=== PATIENT | male | born 1945 | race Hispanic/Latino ===

== ENCOUNTER 2016-07-07 06:16 | Day surgery (SDC) | payer MEDICARE ==
[~2016-07-07 06:16] MED LIST: NEOFRIN OS SCH; TETRACAINE 0.5% OS SCH
[2016-07-07] MEDS ORDERED: VERSED ONE (07:13)
[2016-07-07] MEDS: VIGAMOX OS SCH ×3 (07:20→07:30)
[2016-07-07] MEDS: AK-Dilate OS SCH ×3 (07:20→07:30)
[2016-07-07] MEDS: MYDRIACYL 1% OS SCH ×3 (07:20→07:30)
--- NOTE | 2016-07-07 07:32 | Anesthesia Consultation ---
Anesthesia Consult and Med Hx Date of service: 07/07/16 - Airway Anesthetic Teeth Evaluation: Good ROM Head & Neck: Adequate Mental/Hyoid Distance: Adequate Mallampati Class: Class I Intubation Access Assessment: Good - Pulmonary Exam CTA: Yes - Cardiac Exam Cardiac Exam: RRR - Pre-Operative Health Status ASA Pre-Surgery Classification: ASA3 Proposed Anesthetic Plan: MAC - Pulmonary Hx Smoking: Yes (quit about 20 years ago) Hx Asthma: No Hx Respiratory Symptoms: Yes (currently having clear nasal drainage d/t cold) COPD: No Hx Sleep Apnea: Yes (cpap) - Cardiovascular System Hx Hypertension: Yes Hx Heart Murmur: No - Central Nervous System Hx Neuromuscular Disorder: Yes (occasional numbness in fingers; restless leg syndrome) Hx Psychiatric Problems: Yes - Gastrointestinal Hx Gastroesophageal Reflux Disease: Yes (esophageal stricture) - Endocrine Hx Renal Disease: Yes (kidney stones; BPH) Hx Insulin Dependent Diabetes: Yes Hx Thyroid Disease: No - Hematic Hx Anemia: No - Other Systems Hx Alcohol Use: No Hx Substance Use: No Hx Cancer: No
--- NOTE | 2016-07-07 07:33 | Anesthesia Day of Surgery ---
Anesthesia Day of Surgery - Day of Surgery Patient Examined: Yes Patient H&P Reviewed: Yes Patient is NPO: Yes Beta Blockers: No
[2016-07-07] MEDS ORDERED: PRED FORTE 1% OS SCH (08:00)
[2016-07-07] MEDS ORDERED: PEPCID IV NR (08:00)
[2016-07-07] MEDS ORDERED: ADRENALIN IV ONE (08:35)
--- NOTE | 2016-07-07 08:49 | Operative Report ---
Operative Report Operative Report: PATIENT'S NAME: DATE OF : DATE OF SURGERY: 07/07/2016 PREOPERATIVE DIAGNOSIS: Cataract left eye POSTOPERATIVE DIAGNOSIS: Same OPERATIVE PROCEDURE: Phacoemulsification with intraocular lens implantation, left eye SURGEON: Mili Ashley M.D. PROFESSOR OF SURGERY SURGEON: Benjie Lens: AO60 16.5 D ANESTHESIA: Monitored anesthesia care in combination with topical and intracameral anesthesia because of the established specific risk of reflux, arrhythmias, or anxiety attacks associated with ocular manipulation, as well as the difficulty of the reconsignment clerk to manage such potentially catastrophic events while simultaneously attempting to complete the surgical procedure and was deemed necessary for the patient's safety to have an Risk Manager present during the procedure whenever possible. An Risk Manager was utilized to regulate the intravenous sedation of the patient so the patient was cooperative yet not asleep in order for the patient to successfully maintain fixation of the eye on the operating light of the microscope. COMPLICATIONS: [No surgical complications] No blood loss. ALLERGIES: [No known drug allergies] PROGNOSIS: Excellent INDICATIONS FOR SURGERY: The patient is undergoing surgery in the hopes of eliminating or improving these visual difficulties. PROCEDURE: After arriving at the surgery center, the patient was given topical anesthetic and dilating drops, as noted in the record. The patient was then taken into the operating room and given more anesthetic drops. The eyelids , lashes, and lid margins were scrubbed with Betadine solution, and the patient was draped. The Nurse Risk Manager administered IV sedation and monitored the patient during the procedure. The eye was then fixated with a 0.12, and a stab incision was made in the peripheral clear cornea into the anterior chamber. This was made on my left side. Viscoelastic was next used to fill the anterior chamber. The eye was once again fixated with the 0.12 forceps and a keratome was used make an incision in clear cornea peripherally on my right hand side temporally. The capsule forceps were used to open the central anterior capsule and then make a continuous round capsulotomy. Hydrodissection was carried out utilizing a cannula and balanced salt solution to delineate the cortical material from the capsule and the nucleus from the cortical material. The phaco tip was introduced into the eye and used to remove the anterior cortical material in the area of the capsulotomy. Then the phaco tip was buried into the nucleus, and a chopping instrument was introduced into the eye and used to provide countertraction in the nucleus between this instrument and the phaco tip fracturing the nucleus. This procedure was repeated multiple times, providing multiple small segments of the lens, and then the phaco tip was used to remove each of these segments. An I/A tip was then used to remove the remaining cortex. The anterior chamber was refilled with viscoelastic. An one-piece, acrylic intraocular lens was then placed into an inserting cartridge. The tip of the inserting cartridge was introduced into the keratome incision and into the anterior chamber. The implant was gently advanced through the cartridge and into the eye, where it unfolded, and both haptics were placed in the capsular bag, where it centered nicely and appeared to be well fixated. After placement of the intraocular lens, the I~and~A handpiece was placed back into the eye and used to remove the viscoelastic, including viscoelastic that was behind the optic of the intraocular lens. The anterior chamber was then filled with balanced salt solution, and hydration of the wound was used to cause swelling of the wound and more appropriate watertight closure. When the wound was found to be firm, the patient was asked to comment on how bright the light was. If there was no light perception at all or if the light was substantially dimmer than during the rest of the surgery, the amount of fluid in the eye was decompressed to lower the intraocular pressure until the patient could see the bright light again. This was done to avoid any damage or decreased blood flow to the optic nerve. MEDICATIONS APPLIED AT END OF SURGERY: One drop of Pred Forte and Vigamox The patient was given a shield to wear at night and was instructed not to rub or push on the eye. DISCHARGE SUMMARY: The patient was released in stable condition. The patient and those with the patient were given a written sheet of postoperative instructions and counseling on any abnormal laboratory studies. The patient is to see us tomorrow for follow-up in the office and is to call immediately for any difficulties. Mili Ashley M.D. Date
--- NOTE | 2016-07-07 08:50 | Short Stay Summary ---
Short Stay Documentation Date of service: 07/07/16 - History H&P: obtained from office - Allergies and Medications Current Medications: Allergies No Known Allergies Allergy (Unverified 10/09/13 10:40) Home Medications Medication Instructions Recorded Confirmed Last Taken Type Brimonidine Tartrate [Alphagan P 1 drop OU DAILY 11/11/13 07/04/16 07/06/16 History 0.1%] Insulin Detemir [Levemir VIAL] 8 units SC QAM 11/11/13 07/04/16 07/06/16 History Latanoprost 1 drop OU DAILY 11/11/13 07/04/16 07/06/16 History Metformin HCl 1 tab PO QID 11/11/13 07/04/16 07/06/16 History Metoprolol Tartrate 1 tab PO BID 11/11/13 07/07/16 07/07/16 04:00 History Omeprazole [PriLOSEC] 1 cap PO DAILY 11/11/13 07/04/16 07/06/16 History Quinapril HCl 1 tab PO DAILY 11/11/13 07/04/16 07/06/16 History Sertraline HCl 1 tab PO DAILY 11/11/13 07/04/16 07/06/16 History Sitagliptin Phosphate [Januvia] 1 cap PO DAILY 11/11/13 07/04/16 07/06/16 History Tamsulosin HCl 1 cap PO DAILY 11/11/13 07/04/16 07/06/16 History buPROPion SR [Wellbutrin SR] 1 tab PO DAILY 11/11/13 07/04/16 07/06/16 History rOPINIRole [Requip] 1 tab PO BID 11/11/13 07/04/16 07/06/16 History Clotrimazole 1% [Lotrimin] 1 applic TP BID 07/04/16 07/04/16 07/06/16 History Insulin Lispro [HumaLOG VIAL] 0 units SQ AC 07/04/16 07/04/16 07/06/16 History Simvastatin [Zocor TAB] 40 mg PO QHS 07/04/16 07/04/16 07/04/16 History Solifenacin Succinate [Vesicare] 10 mg PO QDAY 07/04/16 07/07/16 07/07/16 04:00 History Active Medications Famotidine (Pepcid) 20 mg IV PREOP NR Stop: 07/07/16 23:59 Last Admin: 07/07/16 07:51 Dose: 20 mg Moxifloxacin HCl (Vigamox) 1 drops OS Q5MIN MOLLY Stop: 07/09/16 06:01 Last Admin: 07/07/16 07:30 Dose: 1 drops Phenylephrine HCl (Ak-Dilate) 1 drops OS Q5M MOLLY Stop: 07/07/16 18:00 Last Admin: 07/07/16 07:30 Dose: 1 drops Prednisolone Acetate (Pred Forte 1%) 1 drops OS QID MOLLY Tetracaine HCl (Tetracaine 0.5%) 1 drops OS ONCE MOLLY Stop: 07/08/16 05:59 Last Admin: 07/07/16 07:20 Dose: 1 drops Tropicamide (Mydriacyl 1%) 1 drops OS Q5MIN MOLLY Last Admin: 07/07/16 07:30 Dose: 1 drops - Brief post op/procedure progress note Date of procedure: 07/07/16 Pre-op diagnosis: cataract left eye Post-op diagnosis: same Procedure: Phacoemulsification with intraocular lens insertion left eye Anesthesia: MAC Surgeon: ERI NEELY Estimated blood loss: none Pathology: none Condition: stable - Disposition Condition at discharge: Good Disposition: DISCHARGED TO HOME OR SELFCARE - Discharge Diagnoses (1) Cataract Status: Acute Short Stay Discharge Plan Follow up with: ZECHARIAH RIVAS MD [Primary Care Provider] - 7 Days
--- NOTE | 2016-07-07 09:01 | Post Anesthesia Evaluation ---
- Post Anesthesia Evaluation Patient Participated: Yes Airway Patent: Yes Stable Respiratory Function: Yes Temp > 96.8F: Yes Pain Manageable: Yes Adequeate Hydration: Yes Anesthesia Complications: No Block Receding Appropriately: Not Applicable
[2016-07-07 11:44] VITALS: BP 136/76
== END 2016-07-07 09:14 | disposition home or self-care (01) ==
LOC: OR 06:16
DX: E11.36 Type 2 diabetes mellitus with diabetic cataract (principal); I10 Essential (primary) hypertension; M19.90 Unspecified osteoarthritis, unspecified site; E11.39 Type 2 diabetes mellitus with other diabetic ophthalmic complication; H40.9 Unspecified glaucoma; G47.33 Obstructive sleep apnea (adult) (pediatric); F32.9 Major depressive disorder, single episode, unspecified; G25.81 Restless legs syndrome; Z79.4 Long term (current) use of insulin; Z87.891 Personal history of nicotine dependence
CPT/HCPCS: 66984; 82962; J0171; J2250; V2632